=== PATIENT | male | born 1985 | race African-American/Black ===

== ENCOUNTER 2018-01-13 08:43 | Emergency (ER) | payer OTHER ==
[~2018-01-13] VITALS: Ht 167.6 cm; Wt 77.1 kg
[~2018-01-13 08:43] MED LIST: BACTRIM DS TAB1 EACH PO; IBUPROFEN 800800 M1 PO; KEFLEX500 MG PO
[2018-01-13 09:36] VITALS: BP 127/86
== END 2018-01-13 09:39 | disposition home or self-care (01) ==
LOC: ER 08:43
DX: L02.412 Cutaneous abscess of left axilla (principal)